=== PATIENT | female | born 1940 | race Caucasian/White ===

== ENCOUNTER 2020-07-24 12:58 | Inpatient (IN) | payer OTHER, MEDICAID, SELFPAY ==
[~2020-07-24] VITALS: Ht 160 cm; Wt 43.1 kg
[2020-07-24 13:49] VITALS: BP_SYST 132
[2020-07-24] MEDS ORDERED: FLU VACC QS2020-21(65UP)/PF 0.7 ML/SYRINGE I.M. PRN (14:15)
[2020-07-24] MEDS ORDERED: ASPI-1155 GT (14:20)
[2020-07-24] MEDS ORDERED: LIP20 GT (14:20)
[2020-07-24] MEDS ORDERED: [UNRECOGNIZED DRUG - OTHER] GT (15:08)
[2020-07-24] MEDS ORDERED: DULCOLAX PR (15:08)
[2020-07-24] MEDS ORDERED: FLEET ENEMA PR (15:08)
[2020-07-24] MEDS ORDERED: SODIUM CHLORIDE GT (15:08)
[2020-07-24] MEDS ORDERED: MOM GT (15:08)
[2020-07-24] MEDS ORDERED: CARB200T2 GT (15:08)
[2020-07-24] MEDS ORDERED: CALC-1155 GT (15:08)
[2020-07-24] MEDS ORDERED: ACET325T GT (15:08)
[2020-07-24] MEDS ORDERED: MULTIVITAMINS GT (15:08)
[2020-07-24] MEDS ORDERED: NOR10 PO (15:08)
[2020-07-24] MEDS ORDERED: LACO100T2 GT (15:08)
[2020-07-24] MEDS: PIPERACILLIN/TAZO 4.5GM/DEX-IS 100 ML IV SCH ×2 (15:10→21:18)
[2020-07-24] MEDS: KCL 20 mEq in NS 1000 mL 1,000 ML IV SCH (15:11)
[2020-07-24 15:52] VITALS: BP_SYST 103
[2020-07-24] MEDS ORDERED: LACOSAMIDE 100 MG TABLET GT ONE (16:00)
[2020-07-24 19:00] VITALS: BP_SYST 142
[2020-07-24 20:00] VITALS: BP_SYST 142
[2020-07-24] MEDS ORDERED: ACETAMINOPHEN 650 MG/20.3 ML UDC GT PRN (21:00)
[2020-07-25] VITALS: BP_SYST 146
[2020-07-25 04:00] VITALS: BP_SYST 143
[2020-07-25] MEDS: PIPERACILLIN/TAZO 4.5GM/DEX-IS 100 ML IV SCH ×3 (05:53→21:16)
[2020-07-25] MEDS: KCL 20 mEq in NS 1000 mL 1,000 ML IV SCH ×2 (05:53→23:51)
[2020-07-25 08:00] VITALS: BP_SYST 114
[2020-07-25] MEDS: LACOSAMIDE 100 MG TABLET GT SCH ×2 (09:36→21:15)
[2020-07-25 10:56] LABS: BASOPHILS # (AUTO) 0.1 K/uL (0.0-0.2); BASOPHILS % (AUTO) 0.6 % (0.0-2.0); EOSINOPHILS % (AUTO) 0.4 % (0.0-4.0); HEMATOCRIT 27.3 % (36-48); HEMOGLOBIN 9.4 g/dL (12.0-16.0); LYMPHOCYTES # (AUTO) 0.6 K/uL (1.0-5.5); LYMPHOCYTES % (AUTO) 6.5 % (20.5-51.5); MEAN CORPUSCULAR HEMOGLOBIN 33 pg (27-31); MEAN CORPUSCULAR HGB CONC 34 % (32-36); MEAN CORPUSCULAR VOLUME 95 fL (79.0-98.0); MONOCYTES # (AUTO) 0.6 K/uL (0.0-1.0); MONOCYTES % (AUTO) 6.7 % (1.7-9.3); NEUTROPHILS # (AUTO) 7.4 K/uL (1.8-7.7); NEUTROPHILS % (AUTO) 85.8 % (40.0-70.0); PLATELET COUNT (AUTO) 219 K/uL (130-430); RED BLOOD CELL COUNT(AUTO) 2.87 MIL/uL (4.2-6.2); RED CELL DISTRIBUTION WIDTH 14.3 % (9.0-15.0); WHITE BLOOD COUNT (AUTO) 8.6 K/uL (4.8-10.8)
[2020-07-25 11:28] LABS: ALANINE AMINOTRANSFERASE 19 U/L (12-78); ALBUMIN 2.1 g/dL (3.4-4.8); ANION GAP 6 (5-15); ASPARTATE AMINOTRANSFERASE 24 U/L (10-37); CALCIUM 7.5 mg/dL (8.4-11.0); CHLORIDE 95 mmol/L (98-107); CREATININE 0.29 mg/dL (0.55-1.30); GLUCOSE 139 mg/dL (70-99); POTASSIUM 4.2 mmol/L (3.5-5.1); SODIUM SERUM 128 mmol/L (136-145); TOTAL BILIRUBIN 0.2 mg/dL (0.0-1.0); UREA NITROGEN, BLOOD 17 mg/dL (8-21)
[2020-07-25 12:11] VITALS: BP_SYST 142
[2020-07-25 16:35] VITALS: BP_SYST 132
[2020-07-25 20:00] VITALS: BP_SYST 136
[2020-07-26] VITALS: BP_SYST 140
[2020-07-26] MEDS: PIPERACILLIN/TAZO 4.5GM/DEX-IS 100 ML IV SCH ×2 (05:08→14:09)
[2020-07-26 08:00] VITALS: BP_SYST 134
[2020-07-26] MEDS: LACOSAMIDE 100 MG TABLET GT SCH ×2 (09:26→20:30)
[2020-07-26 12:00] VITALS: BP_SYST 157
[2020-07-26 16:00] VITALS: BP_SYST 154
[2020-07-26] MEDS: MEROPENEM 500 MG in NS 50 ML IV SCH (18:18)
[2020-07-26 20:00] VITALS: BP_SYST 149
[2020-07-27] VITALS (7 sets, daily range): BP systolic 145–160
[2020-07-27] MEDS: MEROPENEM 500 MG in NS 50 ML IV SCH ×3 (01:20→18:00)
[2020-07-27 08:29] LABS: BASOPHILS # (AUTO) 0.1 K/uL (0.0-0.2); BASOPHILS % (AUTO) 0.9 % (0.0-2.0); EOSINOPHILS # (AUTO) 0.3 K/uL (0.0-0.4); EOSINOPHILS % (AUTO) 5.5 % (0.0-4.0); HEMATOCRIT 28.2 % (36-48); HEMOGLOBIN 9.8 g/dL (12.0-16.0); LYMPHOCYTES # (AUTO) 1.1 K/uL (1.0-5.5); LYMPHOCYTES % (AUTO) 18.1 % (20.5-51.5); MEAN CORPUSCULAR HEMOGLOBIN 33 pg (27-31); MEAN CORPUSCULAR HGB CONC 35 % (32-36); MEAN CORPUSCULAR VOLUME 95 fL (79.0-98.0); MONOCYTES % (AUTO) 15.8 % (1.7-9.3); NEUTROPHILS # (AUTO) 3.7 K/uL (1.8-7.7); NEUTROPHILS % (AUTO) 59.7 % (40.0-70.0); PLATELET COUNT (AUTO) 250 K/uL (130-430); RED BLOOD CELL COUNT(AUTO) 2.96 MIL/uL (4.2-6.2); WHITE BLOOD COUNT (AUTO) 6.2 K/uL (4.8-10.8)
[2020-07-27 08:47] LABS: ANION GAP 3 (5-15); CHLORIDE 92 mmol/L (98-107); GLUCOSE 114 mg/dL (70-99); POTASSIUM 3.8 mmol/L (3.5-5.1); SODIUM SERUM 127 mmol/L (136-145); UREA NITROGEN, BLOOD 10 mg/dL (8-21)
[2020-07-27] MEDS: LACOSAMIDE 100 MG TABLET GT SCH ×2 (08:50→22:09)
[2020-07-27] MEDS: VANCOMYCIN HCL 500 MG in NS 100 ML IV SCH (17:00)
[2020-07-28] VITALS: BP_SYST 148
[2020-07-28] MEDS: MEROPENEM 500 MG in NS 50 ML IV SCH ×2 (02:19→08:57)
[2020-07-28 08:00] VITALS: BP_SYST 140
[2020-07-28] MEDS: LACOSAMIDE 100 MG TABLET GT SCH ×2 (08:57→20:47)
[2020-07-28 12:00] VITALS: BP_SYST 146
[2020-07-28 12:20] VITALS: BP_SYST 152
[2020-07-28] MEDS: VANCOMYCIN HCL 500 MG in NS 100 ML IV SCH (17:00)
[2020-07-28 17:10] VITALS: BP_SYST 148
[2020-07-28 20:00] VITALS: BP_SYST 144
[2020-07-28] MEDS: CEFEPIME 0.5 GM in D5W 50 ML IV SCH (20:47)
[2020-07-29] VITALS: BP_SYST 146
[2020-07-29 07:48] LABS: BASOPHILS # (AUTO) 0.1 K/uL (0.0-0.2); BASOPHILS % (AUTO) 0.8 % (0.0-2.0); EOSINOPHILS # (AUTO) 0.2 K/uL (0.0-0.4); EOSINOPHILS % (AUTO) 3.5 % (0.0-4.0); HEMATOCRIT 32.2 % (36-48); LYMPHOCYTES # (AUTO) 1.2 K/uL (1.0-5.5); LYMPHOCYTES % (AUTO) 18.1 % (20.5-51.5); MEAN CORPUSCULAR HEMOGLOBIN 33 pg (27-31); MEAN CORPUSCULAR HGB CONC 34 % (32-36); MEAN CORPUSCULAR VOLUME 95 fL (79.0-98.0); MONOCYTES # (AUTO) 0.8 K/uL (0.0-1.0); MONOCYTES % (AUTO) 12.3 % (1.7-9.3); NEUTROPHILS # (AUTO) 4.3 K/uL (1.8-7.7); NEUTROPHILS % (AUTO) 65.3 % (40.0-70.0); PLATELET COUNT (AUTO) 282 K/uL (130-430); RED BLOOD CELL COUNT(AUTO) 3.38 MIL/uL (4.2-6.2); RED CELL DISTRIBUTION WIDTH 14.2 % (9.0-15.0); WHITE BLOOD COUNT (AUTO) 6.5 K/uL (4.8-10.8)
[2020-07-29 07:58] LABS: ANION GAP 7 (5-15); CALCIUM 8.4 mg/dL (8.4-11.0); CHLORIDE 94 mmol/L (98-107); CREATININE < 0.20 mg/dL (0.55-1.30); GLUCOSE 112 mg/dL (70-99); POTASSIUM 4.4 mmol/L (3.5-5.1); SODIUM SERUM 130 mmol/L (136-145); UREA NITROGEN, BLOOD 17 mg/dL (8-21)
[2020-07-29 08:20] VITALS: BP_SYST 142
[2020-07-29] MEDS: CEFEPIME 0.5 GM in D5W 50 ML IV SCH ×2 (10:06→21:55)
[2020-07-29] MEDS: LACOSAMIDE 100 MG TABLET GT SCH ×2 (10:07→21:54)
[2020-07-29] MEDS: MENTHOL/ZINC OXIDE 113 GM OINT. TP PRN (10:07)
[2020-07-29 12:41] VITALS: BP_SYST 114
[2020-07-29 16:51] VITALS: BP_SYST 123
[2020-07-29 20:00] VITALS: BP_SYST 121
[2020-07-30] VITALS: BP_SYST 129
[2020-07-30 08:00] VITALS: BP_SYST 148
[2020-07-30] MEDS: CEFEPIME 0.5 GM in D5W 50 ML IV SCH (09:38)
[2020-07-30] MEDS: LACOSAMIDE 100 MG TABLET GT SCH (09:39)
[2020-07-30] MEDS: MENTHOL/ZINC OXIDE 113 GM OINT. TP PRN ×2 (09:45→14:06)
[2020-07-30 12:49] VITALS: BP_SYST 155
[2020-07-30] MEDS ORDERED: MAXIPIME IVPB (16:32)
[2020-07-30 17:05] VITALS: BP_SYST 149
[2020-07-30] MEDS ORDERED: CEFE1PIG3 IV (17:37)
[2020-07-30 17:46] VITALS: BP_SYST 149
== END 2020-07-30 18:50 | DRG 871 ==
LOC: SMU 12:58 → STU 13:01
PROVIDERS: ADMIT Family Medicine; ATTEND Family Medicine
DX: A41.9 Sepsis, unspecified organism (principal); J69.0 Pneumonitis due to inhalation of food and vomit; J96.01 Acute respiratory failure with hypoxia; E87.1 Hypo-osmolality and hyponatremia; G31.84 Mild cognitive impairment of uncertain or unknown etiology; G40.909 Epilepsy, unspecified, not intractable, without status epilepticus; R13.10 Dysphagia, unspecified; R53.81 Other malaise; R19.7 Diarrhea, unspecified; Z20.828 Contact with and (suspected) exposure to other viral communicable diseases; Z79.82 Long term (current) use of aspirin; Z74.01 Bed confinement status
CPT/HCPCS: 36415; 71045; 76604; 80048; 80053; 82140-TC; 85025; 87045-TC; 87046; 87081; 87230-TC; G0378; J0692; J2185; J2543; J3370; J3480; J7030; J7050; J7060; U0003